=== PATIENT | female | born 1985 | race Caucasian/White ===

== ENCOUNTER 2016-07-26 09:12 | Emergency (ER) | payer MEDICAID, OTHER ==
[~2016-07-26 09:12] MED LIST: VIST50CA PO; ZOLO50TA PO
[2016-07-26 09:16] VITALS: BP 130/75; PULSE 82; RESP 20; TEMP 98.4; O2SAT 96
[2016-07-26] MEDS ORDERED: VENTAER INH (09:41)
--- NOTE | 2016-07-26 09:43 | PD ---
HPI Chief Complaint: Cold / Flu Symptoms Time Seen by Provider: 09:29 Travel History International Travel<30 days: No Contact w/Intl Traveler<30days: No Traveled to known affect area: No History of Present Illness HPI The patient was seen and examined in the presence of the nurse. She complains of cough and congestion and runny nose. She is a cigarette smoker. Severity is mild PFSH Past Medical History Asthma: Yes Blood Disorders: No Depression: Yes (POST ) Cancer: Yes (SKIN CA. OF FACE) Cardiovascular Problems: No COPD: Yes Diminished Hearing: Yes (left ear [place]) Endocrine: No Genitourinary: No Immune Disorder: No Implanted Vascular Access Dvce: Yes Musculoskeletal: No Psychiatric: Yes Reproductive: No Respiratory: Yes (COPD) Seizures: Yes (16 YEARS OF AGE DUE PRESSURE ON EAR DRUM.) Tetanus Vaccination: < 5 Years Influenza Vaccination: Yes ?: Not : 3 Para: 2 : 1 Past Surgical History Body Medical Devices: CONTROL DEVICE Ear Surgery: Yes (13 recontructive sx on left ear) Gynecologic Surgery: Yes (emergency sx for internal bleeding during ) Oral Surgery: Yes (T & A) Tonsillectomy: Yes (t&a) Other Surgery: Yes Social History Alcohol Use: Yes (every other day 3 beers) Tobacco Use: Yes (07/26 PPD) Substance Use: Yes (marijuana) Allergies-Medications (Allergen,Severity, Reaction): Coded Allergies: Lortab (Verified Allergy, Severe, ITCHING AND HALLUCINATIONS, 07/26/16) Macrobid (Verified Allergy, Severe, "ITCHING AND HALLUCINATIONS", 07/26/16) Reported Meds & Prescriptions Reported Meds & Active Scripts Active Vistaril 50 MG CAP (Hydroxyzine Pamoate) 50 Mg Cap 50 Mg PO Q6H PRN 14 Days Zoloft (Sertraline HCl) 50 Mg Tab 50 Mg PO DAILY Review of Systems General / Constitutional: No: Fever HENT: No: Headaches Respiratory: Positive: Cough Physical Exam Narrative RESPIRATORY: Respiratory effort unlabored, no retractions or use of accessory muscles. Breath sounds are clear and symmetric. GASTROINTESTINAL: Abdomen soft, non-tender, nondistended. Positive bowel sounds. No hepato-splenomegaly, or palpable masses. No guarding. SKIN: Inspection shows no rash or ulcers. Palpation shows no induration or nodules. Throat clear Data Data Last Documented VS Vital Signs Date Time Temp Pulse Resp B/P Pulse Ox O2 Delivery O2 Flow Rate FiO2 07/26/16 09:38 96 Room Air 07/26/16 09:16 98.4 82 20 130/75 MDM Medical Decision Making Medical Screen Exam Complete: Yes Emergency Medical Condition: Yes Medical Record Reviewed: Yes Differential Diagnosis Bronchitis, URI, flu syndrome Narrative Course I have reviewed the patient's electronic medical record. Presentation seems most consistent with an acute viral bronchitis Albuterol inhaler prescribed Discussed smoking cessation Diagnosis Primary Impression: Acute viral bronchitis Additional Instructions: The patient was advised to follow up with their physician and return if they worsen. Med/Other Pt SpecificInfo: Prescription(s) given Scripts Albuterol 18 GM Inh (Ventolin Hfa 18 GM Inh)90 Mcg/Act Aer1 Puff INH Q4H PRN ( SHORTNESS OF BREATH) #1 INHALER Ref 0 Prov:Jostin Ramos MD 07/26/16 Disposition: 01 DISCHARGE HOME Condition: Stable Jostin Ramos MD Jul 26, 2016 09:43
== END 2016-07-26 09:52 | disposition home or self-care (01) ==
LOC: PHED 09:12
DX: J20.8 Acute bronchitis due to other specified organisms (principal); F17.210 Nicotine dependence, cigarettes, uncomplicated
CPT/HCPCS: 99283

== ENCOUNTER 2017-10-26 03:31 | Emergency (ER) | payer SELFPAY ==
[~2017-10-26] VITALS: Ht 154.9 cm; Wt 52.8 kg
[~2017-10-26 03:31] MED LIST changes: +VENTAER INH
[2017-10-26 03:35] VITALS: BP 121/76; PULSE 71; RESP 14; TEMP 97.7; O2SAT 99
[2017-10-26 03:55] VITALS: BP 121/76; PULSE 71; RESP 18; TEMP 97.7; O2SAT 99
[2017-10-26] MEDS ORDERED: SERT-129 PO (04:05)
[2017-10-26] MEDS ORDERED: VENTAER INH (04:11)
--- NOTE | 2017-10-26 04:14 | PD ---
HPI Chief Complaint: Cold / Flu Symptoms Time Seen by Provider: 04:08 Travel History International Travel<30 days: No Contact w/Intl Traveler<30days: No Traveled to known affect area: No History of Present Illness HPI 32-year-old female presents to the emergency department for complaint of cough congestion and possible urinary tract infection. Patient has history of bronchitis and endometriosis and recurrent urinary tract infections. Patient states recent exposure to family members with respiratory illness/influenza. Patient has had subjective fever and chills. Patient is out of her rescue inhaler. Patient does not report productive cough. No report of chest pain or vomiting or abdominal pain. Patient has had no diarrhea. Patient has had urinary frequency. Patient has history of recurrent UTIs. Patient denies . Patient is 4 para 3 AB 1. Positive tobacco use. PFSH Past Medical History Narrative Medical Asthma depression UTI endometriosis tonsillectomy tobacco use alcohol use marijuana use; nursing notes reviewed Asthma: Yes Blood Disorders: No Depression: Yes (POST ) Cancer: Yes (SKIN CA. OF FACE) Cardiovascular Problems: No COPD: Yes Diminished Hearing: Yes (left ear [place]) Endocrine: No Genitourinary: No Immune Disorder: No Implanted Vascular Access Dvce: Yes Musculoskeletal: No Psychiatric: Yes Reproductive: No Respiratory: Yes (COPD, Asthma) Immunizations Current: Yes Seizures: Yes (16 YEARS OF AGE DUE PRESSURE ON EAR DRUM.) ?: Not LMP: 10/19/2017 : 3 Para: 2 : 1 Past Surgical History Body Medical Devices: CONTROL DEVICE Ear Surgery: Yes (13 recontructive sx on left ear) Gynecologic Surgery: Yes (emergency sx for internal bleeding during ) Oral Surgery: Yes (T & A) Tonsillectomy: Yes (t&a) Other Surgery: Yes Social History Alcohol Use: Yes (every other day 3 beers) Tobacco Use: Yes (/2 PPD) Substance Use: Yes (marijuana) Allergies-Medications (Allergen,Severity, Reaction): Coded Allergies: acetaminophen (Unverified Allergy, Severe, ITCHING AND HALLUCINATIONS, 10/26) hydrocodone (Unverified Allergy, Severe, ITCHING AND HALLUCINATIONS, ) nitrofurantoin (Unverified Allergy, Severe, "ITCHING AND HALLUCINATIONS", 10/26/17) Reported Meds & Prescriptions Reported Meds & Active Scripts Active Ventolin Hfa 18 GM Inh (Albuterol Sulfate) 90 Mcg/Act Aer 2 Puff INH Q4-6H PRN Ventolin Hfa 18 GM Inh (Albuterol Sulfate) 90 Mcg/Act Aer 1 Puff INH Q4H PRN Reported Sertraline (Sertraline HCl) 100 Mg Tab 100 Mg PO DAILY Review of Systems Except as stated in HPI: all other systems reviewed are Neg General / Constitutional: Positive: Fever (Subject), Chills (Subjective) HENT: Positive: Sore Throat, Congestion Respiratory: Positive: Cough, Shortness of Breath Gastrointestinal: Positive: Vomiting (Self-induced 1), No: Abdominal Pain Genitourinary: No: Frequency, Dysuria Musculoskeletal: No: Myalgias, Arthralgias Skin: No Rash Neurologic: No: Weakness Psychiatric: No: Anxiety Hematologic/Lymphatic: No: Lymph Node Enlargement Physical Exam Narrative GENERAL: Well-developed well-nourished female no acute distress or respiratory distress SKIN: Warm and dry. HEAD: Normocephalic. EYES: No scleral icterus. No injection or drainage. ENT: Mucous membranes moist airways patent NECK: Supple, trachea midline. No JVD or lymphadenopathy. CARDIOVASCULAR: Regular rate and rhythm without murmurs, gallops, or rubs. RESPIRATORY: Breath sounds equal bilaterally. No accessory muscle use. GASTROINTESTINAL: Abdomen soft, non-tender, nondistended. MUSCULOSKELETAL: No cyanosis, or edema. BACK: Nontender without obvious deformity. No CVA tenderness. Data Data Last Documented VS Vital Signs Date Time Temp Pulse Resp B/P (MAP) Pulse Ox O2 Delivery O2 Flow Rate FiO2 10/26/17 04:00 18 99 Room Air 10/26/17 03:55 97.7 71 121/76 (91) Orders Orders Chest, Single Ap (10/26/17 ) Influenzae A/B Antigen (10/26/17 04:09) Urinalysis - C+S If Indicated (10/26/17 04:09) Labs Laboratory Tests Test 10/26/17 04:00 Urine Collection Type CLEAN CATCH Urine Color YELLOW Urine Turbidity SL CLOUDY Urine pH 7.0 Urine Specific [place] LESS/EQUAL 1.005 Urine Protein NEG mg/dL Urine Glucose (UA) NEG mg/dL Urine Ketones NEG mg/dL Urine Occult Blood NEG Urine Nitrite NEG Urine Bilirubin NEG Urine Urobilinogen 0.2 MG/DL Urine Leukocyte Esterase SMALL Urine WBC 0-2 /hpf Urine Squamous Epithelial Cells 0-5 /hpf Urine Amorphous Sediment SMALL Microscopic Urinalysis Comment CULT NOT INDICATED MDM Medical Decision Making Medical Screen Exam Complete: Yes Emergency Medical Condition: Yes Medical Record Reviewed: Yes Interpretation(s) ua: wnl; cx not indicated influenza: negative poc hcg: negative cxr: Differential Diagnosis Viral syndrome, bronchitis, upper respiratory infection, sinusitis, medication refill, UTI Narrative Course Specimens collected for influenza as recent exposure to influenza according to patient chest x-ray ordered urinalysis ordered and prescription for refill of albuterol provided Diagnosis Primary Impression: URI (upper respiratory infection) Additional Impression: Medication refill Referrals: Primary Care Physician call for appointment Patient Instructions: General Instructions Med/Other Pt SpecificInfo: Prescription(s) given Scripts Albuterol 18 GM Inh (Ventolin Hfa 18 GM Inh) 90 Mcg/Act Aer 2 PUFF INH Q4-6H Y for SHORTNESS OF BREATH, #1 INHALER 0 Refills Prov: Shelby Young MD 10/26/17 Disposition: 01 DISCHARGE HOME Condition: Stable Shelby Young MD Oct 26, 2017 04:14
[2017-10-26 04:25] LABS: BILIRUBIN, URINE NEG (NEG); BLOOD, URINE NEG (NEG); GLUCOSE,URINE NEG (NEG); KETONE, URINE NEG (NEG); NITRITE,URINE NEG (NEG); URINE COLOR YELLOW (YELLW/STRAW); URINE LEUKOCYTE ESTERASE SMALL (NEG)
[2017-10-26 04:33] LABS: AMORPHOUS SEDIMENT, URINE SMALL; SQUAMOUS EPITHELIAL CELL URINE 0-5 /hpf (0-5); WBC, URINE 0-2 /hpf (0-5)
[2017-10-26 05:00] VITALS: BP 112/72; PULSE 67; RESP 16; O2SAT 100
--- NOTE | 2017-10-26 06:09 | RADRPT ---
EXAM DATE/TIME: 10/26/2017 04:34 [facility] COMPARISON: CHEST PA & LAT, April 04, 2009, 18:23. INDICATIONS : Cough and congestion. MEDICAL HISTORY : None. SURGICAL HISTORY : None. ENCOUNTER: Initial ACUITY: 2 days PAIN SCORE: 3/10 LOCATION: Bilateral chest FINDINGS: A single view of the chest demonstrates the lungs to be symmetrically aerated without evidence of mas s, infiltrate or effusion. The cardiomediastinal contours are unremarkable. Osseous structures are intact. CONCLUSION: No acute disease. Jarred Quintero MD on October 26, 2017 at 6:06 Board Certified Radiologist. This report was verified electronically.
[2017-10-26 06:38] VITALS: BP 105/65; PULSE 66; RESP 16; O2SAT 98
[2017-10-26 07:24] VITALS: BP 101/66; PULSE 78; RESP 18; O2SAT 95
== END 2017-10-26 07:57 | disposition home or self-care (01) ==
LOC: PHED 03:31
DX: Z76.0 Encounter for issue of repeat prescription (principal); J06.9 Acute upper respiratory infection, unspecified; J45.909 Unspecified asthma, uncomplicated; J44.9 Chronic obstructive pulmonary disease, unspecified; F17.200 Nicotine dependence, unspecified, uncomplicated; Z86.69 Personal history of other diseases of the nervous system and sense organs; Z79.51 Long term (current) use of inhaled steroids; Z79.899 Other long term (current) drug therapy; Z88.5 Allergy status to narcotic agent
CPT/HCPCS: 71045; 81001; 84703; 87804; 99284

== ENCOUNTER 2017-11-29 13:38 | Emergency (ER) | payer SELFPAY ==
[~2017-11-29] VITALS: Ht 154.9 cm; Wt 50.0 kg
[~2017-11-29 13:38] MED LIST changes: +SERT-129 PO; -VIST50CA PO; -ZOLO50TA PO
[2017-11-29 14:14] VITALS: BP 141/68; PULSE 68; RESP 17; TEMP 98.6; O2SAT 100
[2017-11-29] MEDS ORDERED: MUPI2OIN TOPICAL (15:01)
--- NOTE | 2017-11-29 15:06 | PD ---
HPI Chief Complaint: Skin Problem Time Seen by Provider: 14:51 Travel History International Travel<30 days: No Contact w/Intl Traveler<30days: No Traveled to known affect area: No History of Present Illness HPI 32-year-old female presents to the emergency room for evaluation of painful skin lesions to her left nose and left chin for the past week. States they started off as small pimples and have spread. States they are painful with some clear drainage. She is concerned because they are not healing. Her has history of MRSA. She denies fever, chills, nausea, vomiting. PFSH Past Medical History Asthma: Yes Blood Disorders: No Depression: Yes (POST ) Cancer: Yes (SKIN CA. OF FACE) Cardiovascular Problems: No COPD: Yes Diminished Hearing: Yes (left ear [place]) Endocrine: No Genitourinary: No Immune Disorder: No Implanted Vascular Access Dvce: Yes Musculoskeletal: No Psychiatric: Yes Reproductive: No Respiratory: Yes (COPD, Asthma) Immunizations Current: Yes Seizures: Yes (16 YEARS OF AGE DUE PRESSURE ON EAR DRUM.) ?: Not LMP: 11/2017 : 3 Para: 2 : 1 Past Surgical History Body Medical Devices: CONTROL DEVICE Ear Surgery: Yes (13 recontructive sx on left ear) Gynecologic Surgery: Yes (emergency sx for internal bleeding during ) Oral Surgery: Yes (T & A) Tonsillectomy: Yes (t&a) Other Surgery: Yes Social History Alcohol Use: Yes (every other day 3 beers) Tobacco Use: Yes (1/2 PPD) Substance Use: Yes (marijuana) Allergies-Medications (Allergen,Severity, Reaction): Coded Allergies: acetaminophen (Unverified Allergy, Severe, ITCHING AND HALLUCINATIONS, 11/29) hydrocodone (Unverified Allergy, Severe, ITCHING AND HALLUCINATIONS, ) nitrofurantoin (Unverified Allergy, Severe, "ITCHING AND HALLUCINATIONS", 11/29/17) Reported Meds & Prescriptions Reported Meds & Active Scripts Active Ventolin Hfa 18 GM Inh (Albuterol Sulfate) 90 Mcg/Act Aer 2 Puff INH Q4-6H PRN Ventolin Hfa 18 GM Inh (Albuterol Sulfate) 90 Mcg/Act Aer 1 Puff INH Q4H PRN Reported Sertraline (Sertraline HCl) 100 Mg Tab 100 Mg PO DAILY Review of Systems Except as stated in HPI: all other systems reviewed are Neg Physical Exam Narrative GENERAL: Well-nourished, well-developed female no acute distress. Afebrile. Ambulatory. SKIN: Focused skin assessment warm/dry. There are 2 1 cm in diameter superficial lesions to the left nose and left chin with honey crusted drainage. HEAD: Normocephalic. EYES: No scleral icterus. No injection or drainage. NECK: Supple, trachea midline. No JVD or lymphadenopathy. CARDIOVASCULAR: Regular rate and rhythm without murmurs, gallops, or rubs. RESPIRATORY: Breath sounds equal bilaterally. No accessory muscle use. PSYCHIATRIC: No delusional thought processes. No hallucinations. Data Data Last Documented VS Vital Signs Date Time Temp Pulse Resp B/P (MAP) Pulse Ox O2 Delivery O2 Flow Rate FiO2 11/29/17 14:14 98.6 68 17 141/68 (92) 100 MDM Medical Decision Making Medical Screen Exam Complete: Yes Emergency Medical Condition: Yes Medical Record Reviewed: Yes Differential Diagnosis MRSA, impetigo, acne, folliculitis Narrative Course 32-year-old female presents to the emergency room for evaluation of 2 painful lesions to her face for the past week. States it started off as small pimples and have gotten larger and are not healing. Her has history of MRSA. History and physical exam are consistent with impetigo. Patient discharged with mupirocin and told to follow-up with a primary care physician or return for worsening symptoms. She understands and agrees to plan. Diagnosis Primary Impression: Impetigo Referrals: [facility] (Out patient) [facility] Additional Instructions: Rest and drink plenty of fluids. Apply cream twice daily for 1-2 weeks. Follow-up with a primary care physician. Return to the emergency room for worsening symptoms. Med/Other Pt SpecificInfo: Prescription(s) given Scripts Mupirocin Topical (Mupirocin Topical) 2 % Oint 1 APPLIC TOPICAL BID for Mgmt Bacterial Infection, #1 TUBE 0 Refills Prov: Terrell Hatfield MD 11/29/17 Disposition: 01 DISCHARGE HOME Condition: Stable Val Rodríguez November 29, 2017 15:05
[2017-11-29] MEDS ORDERED: SERO50TA PO (15:25)
== END 2017-11-29 15:28 | disposition home or self-care (01) ==
LOC: NEPK 13:38
DX: L01.00 Impetigo, unspecified (principal)
CPT/HCPCS: 99283

== ENCOUNTER 2018-01-17 06:08 | Inpatient (IN) ==
[2018-01-22] MEDS ORDERED: QUEtiapine 25 MG Tablet ONE (08:59)
[2018-01-22] MEDS: QUEtiapine 25 MG Tablet PO SCH (09:05)
[2018-01-22] MEDS ORDERED: Aluminum/Magnesium/Simethacone Susp 30 ML UDC PO PRN (09:47)
--- NOTE | 2018-01-22 10:25 | P.PN ---
Subjective Interval history: Follow-up visit bilateral lower extremity multiple abrasions, multiple lesions all throughout the body, back acne. Patient seen and examined today. Reports she is doing okay. States she continues to have itching all throughout her body front and back. Patient states she was in the [place] for 6 days that she had all of this bug bites. Complaints of bilateral lower extremity pain secondary to wounds, weakness when walking secondary to pain denies SOB/ dyspnea. Denies chest pain, palpitations, headaches, dizziness. Denies fevers, chills, n/v/d. Denies dysuria. Physical Exam Vital signs: Vital Signs 01/22/18 06:38 Temperature 97.8 F Pulse Rate 77 Respiratory Rate 16 Blood Pressure 110/57 L Pulse Oximetry 95 Intake & Output 01/21/18 01/22/18 01/22/18 18:59 06:59 18:59 Intake Total 0 / 0 Balance 0 / 0 Intake: Oral 0 / 0 Other: # Voids 1 Narrative: GENERAL: This is a well-nourished, well-developed patient, in no apparent distress. SKIN: Warm and dry. Multiple abrasions that are old and scabbed in multiple stages of healing, lacerations to the soles the patient feeds without erythema, multiple lesions all throughout her body, macular rash abdominal area also bilateral thighs. HEENT: Normocephalic. Pupils equal round and reactive. Nose without bleeding. Airway patent. NECK: Trachea midline. No JVD. Supple. CARDIOVASCULAR: Regular rate and rhythm without murmurs, gallops, or rubs. RESPIRATORY: Clear to auscultation. Breath sounds equal bilaterally. No wheezes , rales, or rhonchi. GASTROINTESTINAL: Abdomen soft, non-tender, nondistended. Bowel Sounds normoactive x4. MUSCULOSKELETAL: Extremities without clubbing, cyanosis, or edema. NEUROLOGICAL: Awake and alert. Oriented to time, place, person. No focal neuro deficit. Moves all extremities. Normal speech. Results - Labs CBC & Chem 7: 01/21/18 08:21 01/21/18 08:21 Labs: Laboratory Results - last 24 hr 01/18/18 01/19/18 01/19/18 12:14 16:35 16:35 WBC 8.4 RBC 3.53 L Hgb 11.2 L Hct 33.7 L MCV 95.4 MCH 31.9 MCHC 33.4 RDW 13.3 Plt Count 225 MPV 8.3 Neut % (Auto) 54.1 Lymph % (Auto) 35.1 [place] % (Auto) 4.5 Eos % (Auto) 5.7 H Baso % (Auto) 0.6 Neut # (Auto) 4.5 Lymph # (Auto) 2.9 [place] # (Auto) 0.4 Eos # (Auto) 0.5 H Baso # (Auto) 0.0 CBC Comment DIFF FINAL Sodium 144 143 Potassium 3.5 3.6 Chloride 108 H 105 Carbon Dioxide 30.5 28.6 Anion Gap 6 9 BUN 19 H D 19 H Creatinine 0.57 0.67 Estimated GFR 125 103 Random Glucose 106 96 Hemoglobin A1c 5.4 Calcium 7.9 L D 7.9 L Phosphorus Magnesium Total Bilirubin 0.1 L AST 18 ALT 26 Alkaline Phosphatase 66 C-Reactive Protein 1.20 H Total Protein 5.5 L D Albumin 2.7 L Triglycerides 146 Cholesterol 118 L LDL Cholesterol 50 HDL Cholesterol 38.9 L Cholesterol/HDL Ratio 3.03 Urine Color Urine Turbidity Urine pH Ur Specific [place] Urine Protein Urine Glucose (UA) Urine Ketones Urine Occult Blood Urine Nitrite Urine Bilirubin Urine Urobilinogen Ur Leukocyte Esterase Urine RBC Urine WBC Ur Squamous Epith Cells Urine Mucus Micro UA Comment 01/21/18 01/21/18 01/21/18 08:21 08:21 11:40 WBC 6.0 RBC 4.04 Hgb 13.3 D Hct 38.7 MCV 95.8 MCH 32.9 MCHC 34.4 RDW 13.0 Plt Count 264 MPV 7.9 Neut % (Auto) 38.9 Lymph % (Auto) 44.5 H [place] % (Auto) 7.3 Eos % (Auto) 8.5 H Baso % (Auto) 0.8 Neut # (Auto) 2.4 Lymph # (Auto) 2.7 [place] # (Auto) 0.4 Eos # (Auto) 0.5 H Baso # (Auto) 0.0 CBC Comment DIFF FINAL Sodium 139 Potassium 4.3 Chloride 100 Carbon Dioxide 34.0 H Anion Gap 5 BUN 16 Creatinine 0.78 Estimated GFR 87 L Random Glucose 92 Hemoglobin A1c Calcium 8.8 D Phosphorus 3.5 Magnesium 1.8 Total Bilirubin AST ALT Alkaline Phosphatase C-Reactive Protein Total Protein Albumin 3.1 L Triglycerides Cholesterol LDL Cholesterol HDL Cholesterol Cholesterol/HDL Ratio Urine Color YELLOW Urine Turbidity CLEAR Urine pH 7.0 Ur Specific [place] 1.015 Urine Protein NEG Urine Glucose (UA) NEG Urine Ketones NEG Urine Occult Blood NEG Urine Nitrite NEG Urine Bilirubin NEG Urine Urobilinogen LESS THAN 2 Ur Leukocyte Esterase NEG Urine RBC 1 Urine WBC 3 Ur Squamous Epith Cells 2 Urine Mucus FEW H Micro UA Comment CULT NOT INDICATED Assessment and Plan - Plan 32-year-old female with a history of COPD, endometriosis, depression who was intentionally stuck in the [place] for a week without shoes apparently in an attempt to harm herself Psychiatric disturbance -Management as per psychiatry service Bilateral lower extremity with multiple abrasions Multiple lesions throughout body, acne -Leukocytosis on admission, improved -There is no evidence for snakebite in patient's groin. Abrasions to arch of left foot evaluated to be abrasions, not snakebite. Patient reports tenderness. -Continue antibiotics Keflex, switch over Bactrim to doxycycline twice daily 12 day. Oxycodone for dressing changes -Benadryl for itching. Lac-Hydrin lotion. -Wound care consult appreciate recommendations. Dehydration on admission Dilutional anemia -With BUN of 45. -Improving with p.o. intake. -Continue to encourage p.o. intake. Leukocytosis of 17 on admission -Does not appear to be sepsis. Likely secondary to stress. -Resolved. DVT prop early ambulation Discussed Condition With: Patient, nurse
[2018-01-22] MEDS: Ibuprofen 400 MG Tablet PO PRN (12:22)
--- NOTE | 2018-01-22 15:48 | P.PNPSY ---
Subjective Remarks: Patient seen in her room with floor staff, chart reviewed, patient compliant medication. Patient continues calm low behavioral issues as well as some mild entitlement noted. Stating she cannot wait to get home to be with her children. For now continue treatment she does denies suicidality voices or visions at this time Review of Systems All other systems reviewed negative except as stated in HPI Mental Status Examination Appearance: Appropriate Consciousness: Alert Orientation: x4 Motor Activity: Other Speech: Unremarkable (Patient laying in bed) Language: Adequate Fund of Knowledge: Adequate Attention and Concentration: Adequate Memory: Unremarkable Mood: Other (Euthymic to somewhat irritable) Affect: Other (Good range and intensity) Thought Process & Associations: Intact Thought Content: Appropriate Hallucination Type: None Delusion Type: None Suicidal Ideation: No Suicidal Plan: No Suicidal Intention: No Homicidal Ideation: No Homicidal Plan: No Homicidal Intention: No Insight: Fair Judgment: Impulsive Assessment and Plan - Plan Plan: Estimated LOS: [] days Justification for Continued Inpatient Stay: At this time patient would decompensate a place to the lower level of care Discharge Planning: To be determined - Attending Attestation Seeing patient and dictated the above note
[2018-01-22] MEDS: predniSONE 20 MG Tablet PO SCH (16:20)
[2018-01-22] MEDS: LORazepam 1 MG Tablet PO PRN (20:43)
[2018-01-22] MEDS ORDERED: QUEtiapine 100 MG Tablet PO SCH (21:00)
[2018-01-22] MEDS: Lactic Acid (Ammonium Lactate) 12% Lotion 225 GM Bottle TOPICAL SCH (23:48)
[2018-01-23 07:14] LABS: Baso % (Auto) 0.7 % (0.0-2.0); Eos % (Auto) 0.8 % (0.0-4.0); Hematocrit 36.7 % (35.0-46.0); Hemoglobin 12.2 gm/dL (11.6-15.3); Lymph # (Auto) 0.7 th/mm3 (1.0-4.8); Lymph % (Auto) 12.5 % (9.0-44.0); Mean Corpuscular HGB Conc 33.3 % (32.0-36.0); Mean Corpuscular Hemoglobin 31.3 pg (27.0-34.0); Mean Corpuscular Volume 94.2 fL (80.0-100.0); Mean Platelet Volume 7.7 fL (7.0-11.0); Mono # (Auto) 0.5 th/mm3 (0.0-0.9); Mono % (Auto) 8.2 % (0.0-8.0); Neut # (Auto) 4.5 th/mm3 (1.8-7.7); Neut % (Auto) 77.8 % (16.0-70.0); Platelet Count 270 th/mm3 (150-450); Red Blood Count 3.89 mil/mm3 (4.00-5.30); White Blood Count 5.8 th/mm3 (4.0-11.0)
[2018-01-23] MEDS: Ibuprofen 400 MG Tablet PO PRN (08:12)
[2018-01-23] MEDS: Lactic Acid (Ammonium Lactate) 12% Lotion 225 GM Bottle TOPICAL SCH ×2 (08:59→21:31)
[2018-01-23] MEDS: predniSONE 20 MG Tablet PO SCH (09:00)
[2018-01-23] MEDS: QUEtiapine 25 MG Tablet PO SCH (09:00)
--- NOTE | 2018-01-23 17:13 | P.PN ---
Subjective Interval history: Follow-up on patient with multiple lesions. Patient seen and examined. Patient complains of intense itching. States that the lesions have improved stone but the itching has not. She denies any fever or chills. She complains of new onset slurred speech and also states she had periodic episodes of loss of vision while in the [place] several days ago. She has a history of seizure disorder. She reports bilateral lower extremity weakness which is new. She reports chronic memory loss. She denies any chest pain or shortness of breath. She denies any nausea, vomiting or abdominal pain. Physical Exam Vital signs: Vital Signs 01/22/18 18:16 01/22/18 18:32 01/23/18 05:10 Temperature 98.8 F 98.8 F 97.8 F Pulse Rate 88 88 73 Respiratory Rate 17 17 15 Blood Pressure 163/60 H 163/60 H 109/57 L Pulse Oximetry 93 L Intake & Output 01/22/18 01/23/18 01/23/18 18:59 06:59 18:59 Intake Total 1880 / 1880 480 / 480 192 / 1920 Output Total 2 / 2 Balance 1874 / 1874 478 / 478 1919 / 1919 Intake: Oral 1880 / 1880 480 / 480 1919 / 0 Output: Urine 2 / 2 Other: Date of Last Bowel Movement 01/22/18 # Bowel Movements 1 Narrative: GENERAL: This is a well-nourished, well-developed young female patient, in no apparent distress. Awake and alert. SKIN: Warm and dry. Multiple abrasions that are old and scabbed in multiple stages of healing, lacerations to the soles the patient feeds without erythema, multiple lesions all throughout her body, macular rash abdominal area also bilateral thighs. ? Interdigital burrowing noted. Erythematous rash noted on left arm and left side of abdomen. HEENT: Normocephalic. Pupils equal round and reactive. Nose without bleeding. Airway patent. MMM. NECK: Trachea midline. CARDIOVASCULAR: Regular rate and rhythm without murmurs, gallops, or rubs. RESPIRATORY: Clear to auscultation. Breath sounds equal bilaterally. No wheezes , rales, or rhonchi. GASTROINTESTINAL: Abdomen soft, non-tender, + mildly distended. Bowel Sounds normoactive x4. MUSCULOSKELETAL: Extremities without clubbing, cyanosis, or edema. NEUROLOGICAL: Awake and alert. Oriented to time, place, person. No focal neuro deficit. Moves all extremities. Normal speech. PSYCHIATRIC: Poor judgment and insight Results - Labs CBC & Chem 7: 01/23/18 06:40 01/21/18 08:21 Laboratory Results - last 24 hr 01/23/18 06:40 WBC 5.8 RBC 3.89 L Hgb 12.2 Hct 36.7 MCV 94.2 MCH 31.3 MCHC 33.3 RDW 13.0 Plt Count 270 MPV 7.7 Neut % (Auto) 77.8 H Lymph % (Auto) 12.5 [place] % (Auto) 8.2 H Eos % (Auto) 0.8 Baso % (Auto) 0.7 Neut # (Auto) 4.5 Lymph # (Auto) 0.7 L [place] # (Auto) 0.5 Eos # (Auto) 0.0 Baso # (Auto) 0.0 WBC Differential . Differential Comment Auto diff final Assessment and Plan - Plan 32-year-old female with a history of COPD, endometriosis, depression who was intentionally stuck in the [place] for a week without shoes apparently in an attempt to harm herself Psychiatric disturbance -Management as per psychiatry service Bilateral lower extremity with multiple abrasions Multiple lesions throughout body ?Scabies infection -treat with permethrin cream 5% x 1 application -Continue on Keflex and doxycycline -Benadryl for itching. Lac-Hydrin lotion. Persistent itching, trial of Atarax. -Wound care consult appreciate recommendations. Dehydration on admission Dilutional anemia BUN of 45. -Improving with p.o. intake. -Continue to encourage p.o. intake. Leukocytosis of 17 on admission -Does not appear to be sepsis. Likely secondary to stress. -Resolved. New onset slurred speech, episodes of vision loss Hx of seizure disorder -Obtain Head CT for further evaluation DVT prop early ambulation
[2018-01-23] MEDS: QUEtiapine 100 MG Tablet PO SCH (21:33)
--- NOTE | 2018-01-23 21:58 | P.PNPSY ---
Subjective Remarks: Patient seen for follow up; chart reviewed. Discussion with nursing staff reported that the patient compliant with medications, tearful at times. Patient was found lying on hospital bed, tearful during interview. Patient states that her mood has been "not good' reports haivng AH last night, continues with depressed mood but denying any recent SI. She states wanting to engage in sober living or rehabiliation program. Spoke with family, anxious about possibility of being homeless upon discharge. Review of Systems All other systems reviewed negative except as stated in HPI Mental Status Examination Appearance: Appropriate Consciousness: Alert Orientation: x4 Motor Activity: Other Speech: Unremarkable (Patient laying in bed) Language: Adequate Fund of Knowledge: Adequate Attention and Concentration: Adequate Memory: Unremarkable Mood: Sad Affect: Sad, Other (tearful) Thought Process & Associations: Intact Thought Content: Appropriate Hallucination Type: None Delusion Type: None Suicidal Ideation: No Suicidal Plan: No Suicidal Intention: No Homicidal Ideation: No Homicidal Plan: No Homicidal Intention: No Insight: Fair Judgment: Impulsive Assessment and Plan - Assessment (1) Unspecified psychosis Code(s): F29 - Unspecified psychosis not due to a substance or known physiological condition Status: Acute - Plan Plan: Patient continues with AH, depressed mood, amadou continue to titrate quetiapine for psychosis and mood stabilization. Continue rest of medications and recommendations as per primary medical team. Monitor mood and behavior. Discharge planning in progress. Justification for Continued Inpatient Stay: At risk for further decompensation at lower level of care.
[2018-01-24] MEDS: Lactic Acid (Ammonium Lactate) 12% Lotion 225 GM Bottle TOPICAL SCH ×3 (07:01→21:14)
[2018-01-24] MEDS: predniSONE 20 MG Tablet PO SCH (09:49)
[2018-01-24] MEDS: QUEtiapine 25 MG Tablet PO SCH (09:50)
[2018-01-24] MEDS: Ibuprofen 400 MG Tablet PO PRN (10:00)
--- NOTE | 2018-01-24 14:23 | P.PN ---
Subjective Interval history: Patient is a 32-year-old female admitted for multiple lesions as well as psychiatric management. Seen and examined in room. Continues to complain about intense itching as well as new lesions along her arms torso and legs. Reports that lotions do not help. Is also complaining about considerable foot pain and states that she cannot walk because the lacerations will open back up. Denies any fever nausea or vomiting. Reports that she is eating well. Reports normal bowel movements and urination. Does have a complaint of left lower quadrant abdominal/pelvic pain. She says she thinks she has an ovarian cyst. Denies ; reports recent spotting. Denies any further slurred speech. When questioned about previous drug reactions she does report burning and itching from antibiotics but that she does not know which one. Physical Exam Vital signs: Vital Signs 01/23/18 19:00 01/24/18 06:00 Temperature 97.7 F 98.0 F Pulse Rate 79 70 Respiratory Rate 15 15 Blood Pressure 118/66 108/59 L Pulse Oximetry 97 97 Intake & Output 01/23/18 01/24/18 01/24/18 18:59 06:59 18:59 Intake Total 2400 / 2400 Balance 2400 / 2400 Intake: Oral 2400 / 2400 Other: # Voids 1 Narrative: GENERAL: This is a well-nourished, well-developed young female patient, in no apparent distress. Awake and alert. SKIN: Warm and dry. Multiple abrasions that are old and scabbed in multiple stages of healing. Lacerations to the soles of feet bilaterally - no edema, drainage or erythema; scabbed but easily re-opened. Feet tender to touch. Multiple lesions all throughout her body, macular rash abdominal area also bilateral thighs and arms. No lesions noted on scalp, neck or face. No genital lesions. Some interdigital burrowing noted. Erythematous rash noted on left arm and left side of abdomen. Significant amount of mechanical trama noted as well. HEENT: Normocephalic. Pupils equal round and reactive. Nose without bleeding. Airway patent. MMM. NECK: Trachea midline. CARDIOVASCULAR: Regular rate and rhythm without murmurs, gallops, or rubs. RESPIRATORY: Clear to auscultation. Breath sounds equal bilaterally. No wheezes , rales, or rhonchi. GASTROINTESTINAL: Abdomen soft, tenderness in LLQ and over left adnexa, + mildly distended. Bowel Sounds normoactive x4. MUSCULOSKELETAL: Extremities without clubbing, cyanosis, or edema. NEUROLOGICAL: Awake and alert. Oriented to time, place, person. No focal neuro deficit. Moves all extremities. Normal speech. PSYCHIATRIC: Poor judgment and insight Results - Labs CBC & Chem 7: 01/23/18 06:40 01/21/18 08:21 - Imaging Impressions Head CT 01/23/18 00:00 CONCLUSION: 1. Negative for acute process. Assessment and Plan - Plan 32-year-old female with a history of COPD, endometriosis, depression who was intentionally stuck[place]wondering in the [place] for a week without shoes apparently in an attempt to harm herself. Psychiatric disturbance -Management as per psychiatry service Multiple lesions throughout body - consider multiple source. -HIV, HEP and RPR ordered; pt gave verbal consent- pre testing education done. -Lesion on left forearm and left chest wall possible poison shabnam or similar. -Remainder of lesions - possible drug reaction vs viral vs allergic- stop Keflex and doxycycline; Persistent itching, continue prednisone 20mg, Benadryl 25mg Q6. Start Zantac 150mg x 5 days ?Scabies infection -treated permethrin cream 5% x 1 application -Lac-Hydrin lotion. -Wound care consult appreciate recommendations. Dehydration on admission Dilutional anemia BUN of 45. -Improving with p.o. intake. -Continue to encourage p.o. intake. Leukocytosis of 17 on admission -Does not appear to be sepsis. Likely secondary to stress. -Resolved. New onset slurred speech, episodes of vision loss Hx of seizure disorder -Resolved; Head CT - no acute process LLQ abdominal / pelvic pain. Reported history of endometriosis. - R/O . -Pelvic ultrasound DVT prop; early ambulation
[2018-01-24 18:27] LABS: Hepatitis A IgM Antibody Nonreactive (Nonreactive); Hepatitits B Surface Antigen Nonreactive (Nonreactive)
[2018-01-24] MEDS: QUEtiapine 100 MG Tablet PO SCH (21:15)
--- NOTE | 2018-01-24 23:22 | P.PNPSY ---
Subjective Remarks: Patient seen for follow up; chart reviewed. Discussion with nursing staff reported that the patient noted to caring for self more, hygiene. Patient found brushing hair after shower, noted with better affect, states slept better last night, continued to have crying episodes but denying any SI and reports feeling more hopeful today. She states having spoken to mother and children which she was happy about with possiblity of mother to visit. Denies any AH. Review of Systems All other systems reviewed negative except as stated in HPI Mental Status Examination Appearance: Appropriate Consciousness: Alert Orientation: x4 Motor Activity: Other Speech: Unremarkable (Patient laying in bed) Language: Adequate Fund of Knowledge: Adequate Attention and Concentration: Adequate Memory: Unremarkable Mood: Sad Affect: Sad (lessening) Thought Process & Associations: Intact Thought Content: Appropriate Hallucination Type: None Delusion Type: None Suicidal Ideation: No Suicidal Plan: No Suicidal Intention: No Homicidal Ideation: No Homicidal Plan: No Homicidal Intention: No Insight: Fair Judgment: Impulsive Assessment and Plan - Assessment (1) Major depressive disorder, recurrent episode, severe, with psychotic behavior Code(s): F33.3 - Major depressive disorder, recurrent, severe with psychotic symptoms Status: Acute - Plan Plan: Patient continues with depressed mood but improving, more reactive and better affect. Denies any AH today. Will continue current treatment, monitor mood and behavior. Patient provided with sober living contact numbers. Discharge planning in progress. Justification for Continued Inpatient Stay: At risk for further decompensation at lower level of care.
[2018-01-25] MEDS: QUEtiapine 25 MG Tablet PO SCH (10:48)
[2018-01-25] MEDS: predniSONE 20 MG Tablet PO SCH (10:48)
[2018-01-25] MEDS: Lactic Acid (Ammonium Lactate) 12% Lotion 225 GM Bottle TOPICAL SCH ×2 (10:54→20:53)
--- NOTE | 2018-01-25 12:03 | P.PN ---
Subjective Interval history: Patient is seen today sitting up in bed watching TV. Recently finished breakfast -reports good appetite. Denies fever, chills, nausea or vomiting. Continues to report left-sided abdominal/pelvic pain same as yesterday. No vaginal bleeding. She reports that she thinks her rash is better although she is still somewhat itchy. Physical Exam Vital signs: Vital Signs 01/24/18 18:50 01/24/18 19:00 01/25/18 06:21 Temperature 98.2 F 98.2 F 97.8 F Pulse Rate 83 83 68 Respiratory Rate 16 16 15 Blood Pressure 117/67 117/67 105/65 Pulse Oximetry 98 98 Intake & Output 01/24/18 01/25/18 01/25/18 18:59 06:59 18:59 Intake Total 1560 / 1560 580 / 580 Output Total Balance 1560 / 1560 579 / 579 Weight 80 kg Intake: Oral 1560 / 1560 480 / 480 Oral Supplement 100 / 100 Output: Urine Other: Date of Last Bowel Movement 01/23/18 Narrative: GENERAL: This is a well-nourished, well-developed young female patient, in no apparent distress. Awake and alert. SKIN: Warm and dry. Multiple abrasions that are old and scabbed in multiple stages of healing. Lacerations to the soles of feet bilaterally - no edema, drainage or erythema; Dressed with foam pad and gauze. Feet tender to touch. Multiple lesions all throughout her body, macular rash abdominal area also bilateral thighs and arms. No lesions noted on scalp, neck or face. No genital lesions. Erythematous rash noted on left arm and left side of abdomen. Significant amount of mechanical trama noted as well. Rash appears significantly improved from prior with no obvious new lesions. HEENT: Normocephalic. Pupils equal round and reactive. Nose without bleeding. Airway patent. MMM. NECK: Trachea midline. CARDIOVASCULAR: Regular rate and rhythm without murmurs, gallops, or rubs. RESPIRATORY: Clear to auscultation. Breath sounds equal bilaterally. No wheezes , rales, or rhonchi. GASTROINTESTINAL: Abdomen soft, tenderness in LLQ and over left adnexa, + mildly distended. No guarding or rebound tenderness. Bowel Sounds active. MUSCULOSKELETAL: Extremities without clubbing, cyanosis, or edema. NEUROLOGICAL: Awake and alert. Oriented to time, place, person. No focal neuro deficit. Moves all extremities. Normal speech. PSYCHIATRIC: Poor judgment and insight Results - Labs CBC & Chem 7: 01/23/18 06:40 01/21/18 08:21 Laboratory Results - last 24 hr 01/24/18 01/24/18 01/24/18 15:27 15:27 15:27 Beta HCG, Qual Less than 1.0 Hepatitis A IgM Ab Nonreactive Hep Bs Antigen Nonreactive Hep B Core IgM Ab Nonreactive Hep C IgG Ab Nonreactive HIV-1 Antibody Cancelled HIV-2 Antibody Cancelled HIV (1&2) Ag & Ab Refer Cancelled HIV 1&2 Ab/P24 Ag 4thGn Nonreactive Assessment and Plan - Plan 32-year-old female with a history of COPD, endometriosis, depression who was intentionally stuck/wondering in the [place] for a week without shoes apparently in an attempt to harm herself. Psychiatric disturbance -Management as per psychiatry service Multiple lesions throughout body - consider multiple source. -HIV, HEP were negative. RPR pending. -Lesion on left forearm and left chest wall possible poison shabnam or similar. -Remainder of lesions - possible drug reaction vs viral vs allergic- stop Keflex and doxycycline; Persistent itching, continue prednisone 20mg, Benadryl 25mg Q6. Start Zantac 150mg x 5 days. Lesion improving w. no new lesions since stopping abx. Afebrile w/ no sign of infection. Monitor. ?Scabies infection -treated permethrin cream 5% x 1 application -Lac-Hydrin lotion. -Wound care consult appreciate recommendations. -Resolved Dehydration on admission Dilutional anemia BUN of 45. -Improving with p.o. intake. -Continue to encourage p.o. intake. -Resolved Leukocytosis of 17 on admission -Does not appear to be sepsis. Likely secondary to stress. -Resolved. New onset slurred speech, episodes of vision loss Hx of seizure disorder -Resolved; Head CT - no acute process LLQ abdominal / pelvic pain. Reported history of endometriosis. - neg -Pelvic ultrasound pending DVT prop; early ambulation
[2018-01-25] MEDS: LORazepam 1 MG Tablet PO PRN (13:03)
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
--- NOTE | 2018-01-25 16:06 | US ---
EXAM DATE: 01/25/2018 3:55 PM EDT AGE/SEX: 32 years / Female INDICATIONS: Intermittent pelvic pain. CLINICAL DATA: This is the patient's initial encounter. Patient reports that signs and symptoms have been present for 2 days and indicates a pain score of 2/10. MEDICAL/SURGICAL HISTORY: Chronic obstructive pulmonary disease. Hearing loss. Glasses. Seizure s. Coronary artery disease. Asthma. Diabetes. Depression. Tonsillectomy. Ear surgery. Emergency surg leonor during for bleeding. COMPARISON: No prior exams available for comparison. MEASUREMENTS: Uterus:__7.4 x 4.5 x 3.8 cm Endometrial Stripe:__5 mm Right Ovary:__ 3.1 x 2.6 x 2.4 cm Left Ovary:__ 3.6 x 3.0 x 2.1 cm FINDINGS: Uterus: The myometrium has homogeneous echotexture without mass. Endometrial Stripe: The endometrial stripe displays homogeneous echotexture. Right Ovary: Ovary contains no mass. Follicles are present. Left Ovary: Ovary contains no mass. Follicles are present. Fluid: No free fluid. Other: None. CONCLUSION: 1. Examination within normal limits. No adnexal mass or free fluid. Small follicular cysts of the ov moise. Tiny nabothian cyst of cervix. Electronically signed by: Armando Xiao MD 01/25/2018 4:04 PM EDT
[2018-01-25] MEDS: QUEtiapine 100 MG Tablet PO SCH (20:55)
--- NOTE | 2018-01-25 21:29 | ECG ---
Date Performed: 01/25/2018 Time Performed: 11:21:13 PTAGE: 32 years EKG: Sinus rhythm NORMAL ECG PREVIOUS TRACING : 05/11/2007 21.36 Since the previous tracing, no significant change noted DOCTOR: Boo Weeks Interpretating Date/Time 01/25/2018 21:27:29
[2018-01-26] MEDS: predniSONE 20 MG Tablet PO SCH (09:15)
[2018-01-26] MEDS: QUEtiapine 25 MG Tablet PO SCH (09:15)
[2018-01-26] MEDS: LORazepam 1 MG Tablet PO PRN (09:19)
[2018-01-26] MEDS: Lactic Acid (Ammonium Lactate) 12% Lotion 225 GM Bottle TOPICAL SCH (09:23)
--- NOTE | 2018-01-26 11:59 | P.PN ---
Subjective Interval history: Patient is seen sitting up in bed. She appears well and in no acute distress. Reports that her skin is doing better with no new lesions and that everything is healing well. Itchiness has improved. She no longer has any left-sided pelvic pain-reassured her that ultrasound was normal. Discussed lab results are all normal. Denies any fever, nausea vomiting or diarrhea. Denies any chest pain or shortness of breath. Does complain of acid reflux. Physical Exam Vital signs: Vital Signs 01/25/18 19:00 01/26/18 06:12 01/26/18 06:25 Temperature 98.3 F 97.6 F 97.6 F Pulse Rate 91 H 58 L 58 L Respiratory Rate 20 16 16 Blood Pressure 116/69 117/58 L 117/58 L Pulse Oximetry 97 98 Intake & Output 01/25/18 01/26/18 01/26/18 18:59 06:59 18:59 Intake Total 1420 / 1420 1440 / 1440 Balance 1420 / 1420 1440 / 1440 Intake: Oral 1420 / 1420 1440 / 1440 Other: # Voids 2 Narrative: GENERAL: This is a well-nourished, well-developed young female patient, in no apparent distress. Awake and alert. SKIN: Warm and dry. Multiple abrasions that are old and scabbed in multiple stages of healing. Lacerations to the soles of feet bilaterally - no edema, drainage or erythema; Dressed with foam pad and gauze. Feet tender to touch. Prior erythematous rash appears to be resolved. HEENT: Normocephalic. Pupils equal round and reactive. Nose without bleeding. Airway patent. MMM. NECK: Trachea midline. CARDIOVASCULAR: Regular rate and rhythm without murmurs, gallops, or rubs. RESPIRATORY: Clear to auscultation. Breath sounds equal bilaterally. No wheezes , rales, or rhonchi. GASTROINTESTINAL: Abdomen soft, no tenderness. No guarding. Bowel Sounds active. MUSCULOSKELETAL: Extremities without clubbing, cyanosis, or edema. NEUROLOGICAL: Awake and alert. Oriented to time, place, person. No focal neuro deficit. Moves all extremities. Normal speech. PSYCHIATRIC: Poor judgment and insight Results - Labs CBC & Chem 7: 01/23/18 06:40 01/21/18 08:21 Laboratory Results - last 24 hr 01/24/18 15:27 RPR Nonreactive - Imaging Impressions Pelvis Ultrasound 01/25/18 00:00 CONCLUSION: 1. Examination within normal limits. No adnexal mass or free fluid. Small follicular cysts of the ovaries. Tiny nabothian cyst of cervix. Assessment and Plan - Plan 32-year-old female with a history of COPD, endometriosis, depression who was intentionally stuck/wandering in the [place] for a week without shoes apparently in an attempt to harm herself. Psychiatric disturbance -Management as per psychiatry service Multiple lesions throughout body -HIV, HEP, RPR were negative. -Lesion on left forearm and left chest wall possible poison shabnam or similar. Healing well. -Remainder of lesions - possible drug reaction vs viral vs allergic- stop Keflex and doxycycline; Lesion improved w. no new lesions since stopping abx. Stop prednisone and Benadryl. Continue Atarax for itching/picking -Resolved Afebrile w/ no sign of infection. -Resolved ?Scabies infection -treated permethrin cream 5% x 1 application -Lac-Hydrin lotion. -Wound care consult appreciate recommendations. -Resolved Dehydration on admission Dilutional anemia BUN of 45. -Improving with p.o. intake. -Continue to encourage p.o. intake. -Resolved Leukocytosis of 17 on admission -Does not appear to be sepsis. Likely secondary to stress. -Resolved. New onset slurred speech, episodes of vision loss Hx of seizure disorder -Resolved; Head CT - no acute process LLQ abdominal / pelvic pain. Reported history of endometriosis. - neg -Pelvic ultrasound normal. -Resolved GERD -Add PPI Patient appears to be medically stable. We will sign off for now; reconsult if needed. DVT prop; early ambulation
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
[2018-01-26] MEDS: Pantoprazole Sodium 20 MG DR Tablet PO SCH (17:21)
[2018-01-27] MEDS: Lactic Acid (Ammonium Lactate) 12% Lotion 225 GM Bottle TOPICAL SCH ×2 (06:02→21:41)
[2018-01-27] MEDS: QUEtiapine 100 MG Tablet PO SCH ×2 (06:03→21:41)
[2018-01-27] MEDS: QUEtiapine 25 MG Tablet PO SCH (08:29)
[2018-01-27] MEDS: Pantoprazole Sodium 20 MG DR Tablet PO SCH (08:29)
[2018-01-27] MEDS: LORazepam 1 MG Tablet PO PRN ×2 (08:34→15:52)
--- NOTE | 2018-01-27 16:27 | P.PNPSY ---
Subjective Remarks: Patient seen for follow, chart reviewed. Discussion nursing staff reported the patient able attending groups and compliant with medications. Patient was found lying hospital bed noted to be calm, cooperative. Patient states that she has slept "pretty good" stating that she had taken trazodone last evening which helped. Patient spoke with her mother yesterday which went well but continues to miss her family. Patient denies less depressed mood income continue to deny any suicide ideations. Patient states that she is occupy her time withdrawing and running down to do lists which keep her occupied. Patient states she has been attended to reach out to sober living facilities to engage in these programs but has yet to hear back from them. Review of Systems All other systems reviewed negative except as stated in HPI Mental Status Examination Appearance: Appropriate Consciousness: Alert Orientation: x4 Motor Activity: Other Speech: Unremarkable (Patient laying in bed) Language: Adequate Fund of Knowledge: Adequate Attention and Concentration: Adequate Memory: Unremarkable Mood: Anxious Affect: Anxious Thought Process & Associations: Intact Thought Content: Appropriate Hallucination Type: None Delusion Type: None Suicidal Ideation: No Suicidal Plan: No Suicidal Intention: No Homicidal Ideation: No Homicidal Plan: No Homicidal Intention: No Insight: Fair Judgment: Impulsive Assessment and Plan - Assessment (1) Major depressive disorder, recurrent episode, severe, with psychotic behavior Code(s): F33.3 - Major depressive disorder, recurrent, severe with psychotic symptoms Status: Acute - Plan Plan: Patient this time continues to tolerate medications well, noted to have improved mood, denying any suicide ideations at this time. Patient continues to require a safe disposition with possibility of patient engage in sober living if accepted. We will continue to monitor mood and behavior. Discharge planning a progress. Justification for Continued Inpatient Stay: At risk of further decompensation a lower level of care.
[2018-01-28] MEDS: Lactic Acid (Ammonium Lactate) 12% Lotion 225 GM Bottle TOPICAL SCH ×2 (10:17→20:47)
[2018-01-28] MEDS: Pantoprazole Sodium 20 MG DR Tablet PO SCH (10:17)
[2018-01-28] MEDS: QUEtiapine 25 MG Tablet PO SCH (10:17)
--- NOTE | 2018-01-28 14:26 | P.PNPSY ---
Subjective Remarks: Reviewed electronic medical record and discussed case with staff. Patient reports that she feels "a little better but I'm in a lot of pain right now". She refers to an ongoing chest pain and points to her midsternal area. She reports that she has been worked up for cardiac issues and has tried "medicine for GERD but it doesn't work". She indicates that she is "tired and emotionally drained" due to her recent experience. She also reports being stressed due to not receiving her menu, "I had to go looking for the nurse to get a menu". Staff report that she has been med compliant. Mental Status Examination Appearance: Appropriate Consciousness: Alert Orientation: x4 Motor Activity: Other Speech: Unremarkable (Patient laying in bed) Language: Adequate Fund of Knowledge: Adequate Attention and Concentration: Adequate Memory: Unremarkable Mood: Anxious Affect: Anxious Thought Process & Associations: Intact Thought Content: Appropriate Hallucination Type: None Delusion Type: None Suicidal Ideation: No Suicidal Plan: No Suicidal Intention: No Homicidal Ideation: No Homicidal Plan: No Homicidal Intention: No Insight: Fair Judgment: Impulsive Assessment and Plan - Plan Plan: Patient this time continues to tolerate medications well, noted to have improved mood, denying any suicide ideations at this time. Patient continues to require a safe disposition with possibility of patient engage in sober living if accepted. We will continue to monitor mood and behavior. Discharge planning a progress. Justification for Continued Inpatient Stay: Moving this patient to a less restrictive environment could result in decompensation.
[2018-01-28] MEDS: LORazepam 1 MG Tablet PO PRN ×2 (15:17→21:24)
[2018-01-28] MEDS: QUEtiapine 100 MG Tablet PO SCH (20:47)
[2018-01-29] MEDS: Lactic Acid (Ammonium Lactate) 12% Lotion 225 GM Bottle TOPICAL SCH (09:47)
[2018-01-29] MEDS: Pantoprazole Sodium 20 MG DR Tablet PO SCH (09:48)
[2018-01-29] MEDS: QUEtiapine 25 MG Tablet PO SCH (09:48)
--- NOTE | 2018-01-29 10:47 | P.PNPSY ---
Subjective Remarks: Patient seen for follow-up, chart reviewed. Discussion nursing staff reported the patient with no behavioral issues, sleeping well and compliant with medications. Patient was found lying hospital bed noted to be good spirits stating that she had slept well last evening, had been attending groups and was happy that her boyfriend had visited last evening. Patient stated her mood has been good, but continues to plan on hearing back from a sober living facility ( [facility]) which she has a call tomorrow morning at 8 AM to be able to connect with this facility for possible acceptance into this program. Patient denies any SI or HI denying any perceptional disturbances. Review of Systems All other systems reviewed negative except as stated in HPI Mental Status Examination Appearance: Appropriate Consciousness: Alert Orientation: x4 Motor Activity: Other Speech: Unremarkable (Patient laying in bed) Language: Adequate Fund of Knowledge: Adequate Attention and Concentration: Adequate Memory: Unremarkable Mood: Appropriate Affect: Appropriate Thought Process & Associations: Intact Thought Content: Appropriate Hallucination Type: None Delusion Type: None Suicidal Ideation: No Suicidal Plan: No Suicidal Intention: No Homicidal Ideation: No Homicidal Plan: No Homicidal Intention: No Insight: Fair Judgment: Impulsive Assessment and Plan - Assessment (1) Major depressive disorder, recurrent episode, severe, with psychotic behavior Code(s): F33.3 - Major depressive disorder, recurrent, severe with psychotic symptoms Status: Acute - Plan Plan: Patient this time with no suicidal ideations, improved mood, noted to be motivated to engage in sober living facility. Patient to call sob living facility tomorrow at 8 AM to confirm acceptance into this program. Continue current treatment. Continue to monitor mood and behavior. Discharge planning in progress. Justification for Continued Inpatient Stay: At risk for further decompensation if at lower level of care
[2018-01-30] MEDS: Pantoprazole Sodium 20 MG DR Tablet PO SCH (08:33)
[2018-01-30] MEDS: QUEtiapine 25 MG Tablet PO SCH (08:33)
[2018-01-30] MEDS: Lactic Acid (Ammonium Lactate) 12% Lotion 225 GM Bottle TOPICAL SCH ×4 (17:34→22:43)
--- NOTE | 2018-01-30 17:40 | P.PNPSY ---
Subjective Remarks: Patient seen for follow-up, chart reviewed. Discussion with nursing staff reported that the patient pleasant, no behavioral issues. Patient was found to be calm and cooperative with interview, patient states that she has been feeling "better", she mentions wanting medication to be a mostly at night as she feels somewhat groggy during the day. She continues to deny any perceptional services or delusions but mentioning having nightmares in the evening. Patient continues to attempt to engage in sober living facility specifically facility called [facility] but I sure how long witnesses. Patient advised to coordinate alternative plan upon discharge as patient having more stable mood now. Review of Systems All other systems reviewed negative except as stated in HPI Mental Status Examination Appearance: Appropriate Consciousness: Alert Orientation: x4 Motor Activity: Other Speech: Unremarkable (Patient laying in bed) Language: Adequate Fund of Knowledge: Adequate Attention and Concentration: Adequate Memory: Unremarkable Mood: Appropriate Affect: Appropriate Thought Process & Associations: Intact Thought Content: Appropriate Hallucination Type: None Delusion Type: None Suicidal Ideation: No Suicidal Plan: No Suicidal Intention: No Homicidal Ideation: No Homicidal Plan: No Homicidal Intention: No Insight: Fair Judgment: Impulsive Assessment and Plan - Assessment (1) Major depressive disorder, recurrent episode, severe, with psychotic behavior Code(s): F33.3 - Major depressive disorder, recurrent, severe with psychotic symptoms Status: Acute - Plan Plan: Patient this time continues to have improved mood, no longer endorsing any suicidal homicidal ideations,. We will have quetiapine at 250 mg p.o. at bedtime to avoid any daytime sedation. Continue rest of medications. Continue to monitor mood and behavior. Discharge planning in progress. Justification for Continued Inpatient Stay: At risk for further decompensation if at lower level of care
[2018-01-30] MEDS ORDERED: QUEtiapine 100 MG Tablet PO SCH (21:00)
[2018-01-30] MEDS: QUEtiapine 100 MG Tablet PO SCH (22:42)
[2018-01-31] MEDS: Pantoprazole Sodium 20 MG DR Tablet PO SCH (08:05)
[2018-01-31] MEDS: Ibuprofen 400 MG Tablet PO PRN (08:06)
[2018-01-31] MEDS: Lactic Acid (Ammonium Lactate) 12% Lotion 225 GM Bottle TOPICAL SCH (09:51)
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
== END 2018-01-31 13:20 | disposition home or self-care (01) ==
LOC: H4EA 14:15 → H260 01-30 17:53
PROVIDERS: ADMIT Student in an Organized Health Care Education/Training Program; ATTEND Student in an Organized Health Care Education/Training Program